=== PATIENT | male | born 1955 | race Caucasian/White ===

== ENCOUNTER → 2017-12-11 | Outpatient (CLI) | payer BC ==
[~2017-12-11] MED LIST: CLON1 PO; CYCL10 PO; Hydrocodone-Ap1 EA20 PO; LATA.005SO OD; LATANOPROST2.5 ML OP; SERT100 PO; ZOLP10 PO
[2017-12-11 14:48] LABS: Hematocrit 44.4 % (37.0-53.0); Hemoglobin 14.6 g/dL (13.5-17.5); Mean Corpuscular HGB 30.2 pg (26.0-34.0); Mean Corpuscular HGB Conc 32.9 g/dL (31.5-36.5); Mean Corpuscular Volume 92 fL (80-100); Mean Platelet Volume 10.7 fL (9.1-12.4); Platelet Count 280 K/mm3 (150-400); RDW Coefficient Variation 13.3 % (11.7-14.2); RDW Standard Deviation 45.4 fL (35.1-46.3); Red Blood Cell Count 4.83 M/mm3 (4.30-5.90); White Blood Cell Count 9.68 K/mm3 (4.00-11.30)
[2017-12-11 15:02] LABS: Percent Saturation 17.4 % (20.0-50.0)
== END ==
LOC: LAB SHORT 13:45 → LAB 13:45
PROVIDERS: Emergency Medicine
DX: D64.9 Anemia, unspecified (principal)
CPT/HCPCS: 82728; 83540; 83550; 85027

== ENCOUNTER 2018-04-11 10:44 | Day surgery (SDC) | payer BC ==
[~2018-04-11] VITALS: Ht 172.7 cm; Wt 105.3 kg
[2018-04-11] MEDS ORDERED: ONDA8 (11:07)
[2018-04-11] MEDS ORDERED: MULTI VITAMIN1 EACH (11:08)
[2018-04-11] MEDS ORDERED: Xalatan2.5 ML (11:08)
[2018-04-11] MEDS ORDERED: ESCI5 (11:08)
--- NOTE | 2018-04-11 11:24 | NUR ---
04/11/18 1124 Jessica Cisneros PREOP TEACHING DONE, PT HAS NO QUESTIONS. DR JARQUIN GIVES PERMISSION FOR THE PATIENT TO BE ESCORTED TO THE ED (HE IS A PHYSICIAN IN THE ED) WHERE HE WILL HAVE A CO-WORKER DRIVE HIM HOME AFTER THEIR WORK SHIFT.
== END 2018-04-11 13:30 | disposition home or self-care (01) ==
LOC: ORSCSDS 10:44
PROVIDERS: Internal Medicine Gastroenterology
PROC: 0DBL8ZX Excision of Transverse Colon, Via Natural or Artificial Opening Endoscopic, Diagnostic (ICD-10-PCS; principal; 2018-04-11 12:00)
DX: Z12.11 Encounter for screening for malignant neoplasm of colon (principal); Z83.71 Family history of colonic polyps; D12.3 Benign neoplasm of transverse colon; K64.8 Other hemorrhoids; Z79.899 Other long term (current) drug therapy
CPT/HCPCS: 88305; J1980; J7120

== ENCOUNTER → 2018-08-12 | Outpatient (CLI) | payer BC ==
[~2018-08-12] MED LIST changes: +ESCI5; +MULTI VITAMIN1 EACH; +ONDA8; +Xalatan2.5 ML
== END | disposition home or self-care (01) ==
LOC: PLD 10:41 → LAB SHORT 10:41
DX: L57.0 Actinic keratosis (principal)
CPT/HCPCS: 88305

== ENCOUNTER 2020-03-30 12:02 | Inpatient (IN) | payer BC, MEDICARE ==
[~2020-03-30] VITALS: Ht 172.7 cm; Wt 103.3 kg
[~2020-03-30 12:02] MED LIST changes: +COMBIVENT RESPIM4 G1; +ESCI10 PO; -Xalatan2.5 ML
[2020-03-30 13:06] LABS: BASOPHILS ABSOLUTE AUTO 0.04 K/mm3 (0.00-0.23); BASOPHILS PERCENT AUTO 1 % (0-2); EOSINOPHILS PERCENT AUTO 0 % (0-6); Hematocrit 36.8 % (37.0-53.0); Hemoglobin 11.8 g/dL (13.5-17.5); IMMATURE GRAN ABSOLUTE AUTO 0.04 K/mm3 (0.00-0.10); IMMATURE GRAN PERCENT AUTO 1 % (0-1); LYMPHOCYTES ABSOLUTE AUTO 1.38 K/mm3 (0.84-5.20); LYMPHOCYTES PERCENT AUTO 19 % (21-46); MONOCYTES ABSOLUTE AUTO 1.06 K/mm3 (0.16-1.47); MONOCYTES PERCENT AUTO 15 % (4-13); Mean Corpuscular HGB 25.5 pg (26.0-34.0); Mean Corpuscular HGB Conc 32.1 g/dL (31.5-36.5); Mean Corpuscular Volume 80 fL (80-100); Mean Platelet Volume 9.6 fL (9.1-12.4); NEUTROPHILS ABSOLUTE AUTO 4.77 K/mm3 (1.96-9.15); NEUTROPHILS PERCENT AUTO 66 % (41-73); Platelet Count 121 K/mm3 (150-400); RDW Coefficient Variation 20.8 % (11.7-14.2); RDW Standard Deviation 59.3 fL (35.1-46.3); Red Blood Cell Count 4.62 M/mm3 (4.30-5.90); White Blood Cell Count 7.29 K/mm3 (4.00-11.30)
[2020-03-30 13:18] LABS: Alanine Aminotransfer (ALT/SGP 105 U/L (12-78); Albumin, Blood 3.7 g/dL (3.4-5.0); Albumin/Globulin Ratio 1.1 (0.8-1.8); Alk Phos 152 U/L (50-136); Anion Gap 15 mmol/L (6-16); Aspartate Aminotrans (AST/SGOT 153 U/L (12-37); Blood Urea Nitrogen 8 mg/dL (8-24); CO2, Blood 23 mmol/L (21-32); Calcium, Blood 8.8 mg/dL (8.5-10.1); Chloride, Blood 90 mmol/L (98-108); Ethanol (Alcohol), Blood, Med 300 mg/dL; Globulin, Blood 3.3 g/dL (2.2-4.0); Glomerular Filtration Rate >60 (60-); Glucose, Blood 116 mg/dL (70-99); Potassium, Blood 4.2 mmol/L (3.5-5.5); Sodium, Blood 128 mmol/L (136-145)
[2020-03-30 13:19] LABS: International Normalized Ratio 0.94; Prothrombin Time Results 10.1 Sec (9.7-11.5)
[2020-03-30] MEDS ORDERED: CHLO25 PO (14:54)
[2020-03-30] MEDS ORDERED: Xalatan2.5 ML BOTHEYES (17:56)
[2020-03-30] MEDS ORDERED: TIMOLOL MALEATE5 ML BOTHEYES (17:58)
[2020-03-30] MEDS ORDERED: Desyrel150 MG PO (17:59)
[2020-03-30 19:50] LABS: Influenza A, PCR Negative (NEGATIVE); Influenza B, PCR Negative (NEGATIVE); Resp Syncytial Virus, PCR Negative (NEGATIVE); SARS-Cov-2 (COVID-19) PCR, MMC Negative (NEGATIVE)
[2020-03-30] MEDS ORDERED: PANT40 PO (20:44)
[2020-03-30] MEDS ORDERED: MULTI-VITAMIN1 EAC2 PO (20:46)
[2020-03-30] MEDS ORDERED: ESZO3 PO (20:48)
--- NOTE | 2020-03-30 22:00 | NUR ---
PT ARRIVES TO ICU 8 FROM ED VIA STRETCHER. TO ROOM AT 2030. PT ALERT AND MOSTLY ORIENTED. NOTEABLE TREMORS. PT OPEN AND HONEST ABOUT HIS ETOH ABUSE, AND HIS SUICIDAL IDEATION. PT GOOD HISTORIAN. PT'S DAUGHTER, VANNESSA HAS GONE HOME FOR THE NIGHT. ASSISTED WITH SOME HISTORY FOR PT. ALSO SIGNED PT'S CONSENTS WITH PT'S PERMISSION.
--- NOTE | 2020-03-31 02:04 | NUR ---
DR ARAUJO HAS COME IN TO SEE PT EARLIER. ORDERS RECEIVED. PT DOES REQUEST ATIVAN OFTEN, AND LIBRIUM. PT STATES HE IS TRYING TO GET TO SLEEP, AND "TO GET RID OF MY ANXIETY." PT HAS NEEDED TO BE REARRANGED IN THE BED SECONDARY TO HIM BEING RESTLESS. WILL CONTINUE TO MONITOR PT.
[2020-03-31 03:42] LABS: BASOPHILS ABSOLUTE AUTO 0.04 K/mm3 (0.00-0.23); BASOPHILS PERCENT AUTO 1 % (0-2); EOSINOPHILS ABSOLUTE AUTO 0.01 K/mm3 (0.00-0.68); EOSINOPHILS PERCENT AUTO 0 % (0-6); Hematocrit 32.1 % (37.0-53.0); Hemoglobin 10.3 g/dL (13.5-17.5); IMMATURE GRAN PERCENT AUTO 2 % (0-1); LYMPHOCYTES ABSOLUTE AUTO 1.01 K/mm3 (0.84-5.20); LYMPHOCYTES PERCENT AUTO 15 % (21-46); MONOCYTES ABSOLUTE AUTO 0.96 K/mm3 (0.16-1.47); MONOCYTES PERCENT AUTO 14 % (4-13); Mean Corpuscular HGB 26.2 pg (26.0-34.0); Mean Corpuscular HGB Conc 32.1 g/dL (31.5-36.5); Mean Corpuscular Volume 82 fL (80-100); Mean Platelet Volume 9.7 fL (9.1-12.4); NEUTROPHILS ABSOLUTE AUTO 4.57 K/mm3 (1.96-9.15); NEUTROPHILS PERCENT AUTO 68 % (41-73); Platelet Count 95 K/mm3 (150-400); RDW Coefficient Variation 20.9 % (11.7-14.2); RDW Standard Deviation 61.9 fL (35.1-46.3); Red Blood Cell Count 3.93 M/mm3 (4.30-5.90); White Blood Cell Count 6.69 K/mm3 (4.00-11.30)
[2020-03-31 03:59] LABS: Alanine Aminotransfer (ALT/SGP 88 U/L (12-78); Albumin, Blood 3.2 g/dL (3.4-5.0); Albumin/Globulin Ratio 1.2 (0.8-1.8); Alk Phos 138 U/L (50-136); Anion Gap 8 mmol/L (6-16); Aspartate Aminotrans (AST/SGOT 132 U/L (12-37); Bilirubin, Total 1.3 mg/dL (0.1-1.0); Blood Urea Nitrogen 16 mg/dL (8-24); CO2, Blood 30 mmol/L (21-32); Calcium, Blood 8.5 mg/dL (8.5-10.1); Chloride, Blood 93 mmol/L (98-108); Creatinine, Blood 0.94 mg/dL (0.60-1.20); Globulin, Blood 2.7 g/dL (2.2-4.0); Glomerular Filtration Rate >60 (60-); Glucose, Blood 115 mg/dL (70-99); Sodium, Blood 131 mmol/L (136-145); Total Protein, Blood 5.9 g/dL (6.4-8.2)
--- NOTE | 2020-03-31 04:30 | NUR ---
PT HAS BEEN HAVING SOME INCREASE IN CONFUSION. TREMORS CONTINUE. NO HALLUCINATIONS TO NOTE. ATIVAN AND LIBRIUM NEEDED. PT HAS SOME ISSUES WITH URINAL AND NEEDS TO BE CLEANED AND HAVE BED CHANGE.
--- NOTE | 2020-03-31 07:07 | NUR ---
PT BECOMING DIAPHORETIC, AND INCREASINGLY CONFUSED THIS MORNING. HAVE MEDICATED PT RECENTLY WITH 50 MG LIBRIUM WITH 2 MG LORAZEPAM. THIS IS HELPFUL WITH PT. HE DOES ASK HOW LONG A PERSON USUALLY TAKES TO GO THROUGH WITHDRAWALS. TEACHING DONE. 1:1 SITTER REMAINS AT PT'S DOOR FOR PATIENT'S SAFETY. REPORT GIVEN TO PAO PINEDA.
--- NOTE | 2020-03-31 08:00 | NUR ---
ASSUMED CARE: REPORT RECEIVED FROM TAMI Alcantar RN. ASSUMED CARE OF THIS PT AT APPROX 0700. ON ASSESSMENT, THE PT IS RESTING SOUNDLY. HE AWAKENS EASILY TO VERBAL STIMULUS & IS ALERT/ ORIENTED TO LOCATION, EVENT, PERSON & FAMILY. HE IS SLIGHTLY DISORIENTED TO DATE, BELIEVING THAT IT IS March. CIWA 15. LS ARE CLEAR T/O, PT ON 2L NC FOR DESATS TO 87% WHILE SLEEPING SOUNDLY. MONITOR SHOWS SR-ST W/ HR 90-110s, BP STABLE. PT HAS MILD C/O NAUSEA, MEDS PER EMAR. PT IS VOIDING W/O DIFFICULTY, USING URINAL ABLE BUT ALSO HAVING SOME URGENCY INCONTINENCE. SKIN CONDITION OVERALL INTACT, LARGE AREAS OF BRUISING NOTED TO R FLANK/BACK, BILAT KNEES & L THIGH, PT STS FROM RECURRING FALLS AT HOME. WILL CONTINUE TO MONITOR & UPDATE NEEDED.
--- NOTE | 2020-03-31 09:00 | NUR ---
STORY TELLER CONSULT: GIOVANNI England, FIXTURE DESIGNER, HAS BEEN AT BEDSIDE W/ THIS RN THIS AM. THE PT IS CURRENTLY EXPERIENCING A DIVORCE THAT HAS NOT BEEN COMPLETED, BUT CLEARLY STS THAT HIS , GENTRY, SHOULD NOT BE ALLOWED TO HAVE ANY INFORMATION REGARDING HIM OR HIS CARE. INSTEAD HE WOULD LIKE HIS DAUGHTER, JACQUELINE Uriostegui, TO BE THE ONLY PERSON INVOLVED W/ HIS CARE & DECISION MAKING. HE IS CLEAR IN THESE STATEMENTS & HAS BEEN ABLE TO ANSWER ALL QUESTIONS ASKED OF HIM W/O HESITATION. HE DENIES ANY SI AT THIS TIME. HIGH RISK 1:1 SITTER REMAINS AT BEDSIDE UNTIL DR RUBIN HAS EVALUATED THE PT.
--- NOTE | 2020-03-31 12:30 | NUR ---
DR RUBIN: PROVIDER HAS SEEN & EVALUATED THE PT. SI PRECAUTIONS HAVE BEEN CHANGED TO LOW RISK & ORDERS HAVE BEEN PLACED. CENTRAL MONITORING HAS BEEN NOTIFIED THAT PT IS NO LONGER NEEDING TO BE MONITORED ON THE CAMERAS. 1:1 SITTER HAS BEEN DISMISSED. SABRINA Valadez, HEALTH CARE SPECIALIST & ANDRE Montelongo, NURSING SUP, HAVE ALSO BEEN NOTIFIED OF THIS.
--- NOTE | 2020-03-31 13:34 | NUR ---
DR. LEWIS/GI PT NOTED TO HAVE LOOSE STOOL BLACK/DARK RED IN APPEARANCE. PT DENIES ABDOMINAL PAIN OR NAUSEA, STATES "JUST THAT INDIGESTION", REQUESTING IMMODIUM. CALL TO DR. LEWIS. ORDERS RECEIVED FOR HEMOCCULT STOOLS, [facility], [facility]
--- NOTE | 2020-03-31 13:36 | NUR ---
Suicide safety plan inteview attmpted. Pat was not talkative and shook his head n when quesstioned egarding suiciddal intent or ideation. He did affim that he wants to go to [facility] for treatment. ICU Nurse informed this manual writer that health care aide is working on this dischage plan. He was informed of crisis phone number. Psychiatist has dismissed 1:1 observatio.
--- NOTE | 2020-03-31 14:07 | NUR ---
[facility] UPDATE: JACQUELINE Gila, PT's DAUGHTER, HAS NOTIFIED THIS RN THAT TIFFANI WILL BE CALLING FROM [facility] TOMORROW. JACQUELINE HAS REQUESTED THAT TIFFANI BE PLACED ON RELEASE OF INFORMATION SHEET SO THAT SHE MAY SPEAK TO THE PT, WHO IS CONFIDENTIAL, TOMORROW AT APPROX 1330. THIS HAS ALSO BEEN NOTED BRIEFLY ON THE INFO RELEASE PAPERWORK.
[2020-03-31 14:23] LABS: Hematocrit 29.7 % (37.0-53.0); Hemoglobin 9.3 g/dL (13.5-17.5)
--- NOTE | 2020-03-31 16:30 | NUR ---
ASSUMED CARE: PT ASSISTED TO TOILET AND PT WAS UNSTEADY ON FEET. PT WENT TO GET BACK IN BED AND WENT FACE FIRST ONTO BED. DISORIENTED WITH DIRECTIONS BUT ORIENTED ENOUGH TO ASK FOR ATIVAN. 2MG GIVEN. LATEST CIWA SCORE OF 14
--- NOTE | 2020-03-31 18:11 | NUR ---
SHIFT SUMMARY: PT SETS OFF BED ALARM AT TIMES WHEN HE NEEDS TO USE RESTROOM. AWAITING STOOL SAMPLE AT THIS TIME. BANANA BAG RUNNING. STORE DIRECTOR AWARE THAT ONLY [address] AND IF PT NEEDS PRECEDEX HE WILL NEED A SECOND SITE. PT'S DAUGHTER HAS BEEN UPDATED TO PT'S STATUS TODAY. IN [place]ING WORKING ON ARRANGING FOR PT TO GO [facility] IN
[2020-03-31 18:15] LABS: U Amphetamine Screen Not Detected; U Barbituate Screen Not Detected; U Benzodiazapine Screen DETECTED; U Buprenorphine Screen Not Detected; U Cannabinoids Screen Not Detected; U Cocaine Screen Not Detected; U Methadone Screen Not Detected; U Methamphetamine Screen Not Detected; U Opiates Screen Not Detected; U Oxycodone Screen Not Detected; U Phencyclidine Screen Not Detected; U Propoxyphene Screen Not Detected
--- NOTE | 2020-03-31 20:00 | NUR ---
ASSUMED CARE OF PT AT 1915. REPORT RECEIVED AT BEDSIDE. PT PRESENTS IN BED. ALERT AND MOSTLY ORIENTED. PT NOTED TO BE SOMEWHAT IMPULSIVE WHEN HE NEEDS TO VOID. NEEDS TO BE REDIRECTED. WILL REVIEW CHART AND PLAN OF CARE FOR THIS PT.
[2020-03-31 20:46] LABS: Hematocrit 28.2 % (37.0-53.0); Hemoglobin 8.8 g/dL (13.5-17.5)
--- NOTE | 2020-03-31 23:19 | NUR ---
HAVE MEDICATED PT TWICE THIS SHIFT WITH ATIVAN FOR INCREASING TREMORS. PT HAS BEEN INCONTINENT TWICE TO URINE. IS IMPULSIVE. BED ALARM ON BED FOR HIS SAFETY. 18 GAUGE 10 CM POWERGLIDE PLACED IN LEFT UPPER ARM. PT TOLERATES THIS WELL. LABS DRAWN AT TIME OF PLACEMENT. WILL CONTINUE TO MONITOR PT. SEE CIWA SCORING FOR DETAILS.
[2020-04-01 02:20] LABS: Hematocrit 28.2 % (37.0-53.0); Hemoglobin 8.7 g/dL (13.5-17.5)
--- NOTE | 2020-04-01 03:42 | NUR ---
PT HAS, AT TIMES, REMOVED HIS BLOOD PRESSURE CUFF, AND PULLED APART HIS OXIMETER PROBE. HAVE PLACED CONDOM CATHETER ON PATIENT SECONDARY TO FREQUENT URINARY INCONTINENCY. PT HAS DEMONSTRATED A VERY GOOD APPETITE THIS NIGHT WITH FREQUENT REQUESTS FOR FOOD. NO COMPLAINTS OF NAUSEA. NO COMPLAINTS OF PAIN. PT DOES AT TIMES REQUEST ATIVAN. THIS HAS BEEN DONE. WILL CONTINUE TO MONITOR PT.
--- NOTE | 2020-04-01 06:26 | NUR ---
PT HAS NOT VOIDED SINCE CONDOM CATHETER WAS PLACED. ATTENDS IN PLACE. PT HAS BEEN ABLE TO MOVE ABOUT BED ON HIS ONW. IS FORGETFUL. HAS REMAINED PLEASANT AND COOPERATIVE WITH CARE AND ASSESSMENT. DOES COMPLAIN OF BEING UNCOMFORTABLE IN BED. DID ADJUST THE FIRMNESS OF MATTRESS. PT HAS NOT HAD ANY FURTHER COMPLAINTS. PT HAS BEEN MEDICATED WITH ATIVAN AND LIBRIUM FOR ETOH WITHDRAWALS. WILL CONTINUE TO MONITOR PT, AND WILL REPORT OFF TO ONCOMING RN.
--- NOTE | 2020-04-01 07:06 | NUR ---
ASSUMED CARE: PT RESTING QUIETLY AT THIS TIME. BED ALARM ON. NSR IN THE 90S AT THIS TIME. SL. PRECEDEX AVAILABLE IF NEEDED. PT APPEARS CALM AT THIS TIME. NO ACUTE NEEDS
[2020-04-01 08:20] LABS: BASOPHILS ABSOLUTE AUTO 0.04 K/mm3 (0.00-0.23); BASOPHILS PERCENT AUTO 1 % (0-2); EOSINOPHILS ABSOLUTE AUTO 0.06 K/mm3 (0.00-0.68); EOSINOPHILS PERCENT AUTO 1 % (0-6); Hematocrit 28.6 % (37.0-53.0); Hemoglobin 8.9 g/dL (13.5-17.5); IMMATURE GRAN ABSOLUTE AUTO 0.08 K/mm3 (0.00-0.10); IMMATURE GRAN PERCENT AUTO 2 % (0-1); LYMPHOCYTES ABSOLUTE AUTO 1.03 K/mm3 (0.84-5.20); LYMPHOCYTES PERCENT AUTO 20 % (21-46); MONOCYTES PERCENT AUTO 14 % (4-13); Mean Corpuscular HGB 26.4 pg (26.0-34.0); Mean Corpuscular HGB Conc 31.1 g/dL (31.5-36.5); Mean Corpuscular Volume 85 fL (80-100); Mean Platelet Volume 11.7 fL (9.1-12.4); NEUTROPHILS ABSOLUTE AUTO 3.29 K/mm3 (1.96-9.15); NEUTROPHILS PERCENT AUTO 63 % (41-73); NRBC ABSOLUTE 0.03 K/mm3 (0.00-0.02); NRBC Auto 0.6 /100 WBC (0.0-0.2); Platelet Count 86 K/mm3 (150-400); RDW Coefficient Variation 21.1 % (11.7-14.2); RDW Standard Deviation 64.9 fL (35.1-46.3); Red Blood Cell Count 3.37 M/mm3 (4.30-5.90)
[2020-04-01 08:29] LABS: Alanine Aminotransfer (ALT/SGP 87 U/L (12-78); Albumin, Blood 2.7 g/dL (3.4-5.0); Albumin/Globulin Ratio 1.1 (0.8-1.8); Alk Phos 113 U/L (50-136); Anion Gap 5 mmol/L (6-16); Aspartate Aminotrans (AST/SGOT 142 U/L (12-37); Bilirubin, Total 0.6 mg/dL (0.1-1.0); Blood Urea Nitrogen 21 mg/dL (8-24); Bun/Creatinine Ratio 20.8 (12.0-20.0); CO2, Blood 32 mmol/L (21-32); Calcium, Blood 8.5 mg/dL (8.5-10.1); Chloride, Blood 101 mmol/L (98-108); Creatinine, Blood 1.01 mg/dL (0.60-1.20); Globulin, Blood 2.4 g/dL (2.2-4.0); Glomerular Filtration Rate >60 (60-); Glucose, Blood 104 mg/dL (70-99); Potassium, Blood 3.4 mmol/L (3.5-5.5); Sodium, Blood 138 mmol/L (136-145); Total Protein, Blood 5.1 g/dL (6.4-8.2)
--- NOTE | 2020-04-01 10:47 | NUR ---
DR LEWIS AND DR ASCENCIO WERE INQUIRING IF PT COULD BE TRANSFERRED TO [facility] TODAY. MADE THEM AWARE THAT CIWAS HAVE BEEN 9-[address] INSTRUCTED TO TRY TO USE LIBRIUM MORE THAN ATIVAN. WITNESSED PT REQUIRING 2 PERSON ASSIST TO CHAIR AND DETERMINED THAT IT WAS TOO SOON FOR PT TO BE TRANSFERRED FROM HOSPITAL. CALL TO SABRINA IN [place] WHO CONFIRMED THAT [facility] IS FOR WHEN A PERSON IS MEDICALLY STABLE AND THEY DO NOT DEAL WITH ACTIVE WITHDRAWALS, FAR SHE IS AWARE. SENIOR PRICING ANALYST AWARE
--- NOTE | 2020-04-01 11:44 | NUR ---
PT WAS GIVEN 50MG OF LIBRIUM AND CONTINUED TO TRY TO CLIMB OUT OF CHAIR. ASKED WHY CHAIR WAS LOCKED AND WHEN THIS RN EXPLAINED THAT IT WAS SO THAT HE DOES NOT TRY TO GET OUT ON HIS OWN HE GLARED AT NURSE. MEDICATED WITH 2MG ATIVAN. SEE CIWA SCORE. PT WANTED TO EAT LUNCH BUT FALLS ASLEEP WITH LID OF TRAY IN LAP. IN RECLINER, TAB ALARM ON.
--- NOTE | 2020-04-01 14:36 | NUR ---
PT BEGAN TO GET MORE AGITATED AND PULLED OUT HIS IV. INCLUSION TEACHER ADMINISTERED 2MG ATIVAN AND A SECOND IV WAS STARTED. PT IN BED, RESTLESS, WIGGLING IN BED, PULLING AT RESTRAINTS. WILL START PRECEDEX GTT WHEN AVAILABLE.
--- NOTE | 2020-04-01 18:15 | NUR ---
PT'S BP'S HAVE BEEN SOFT WITH SYSTOLICS IN THE 80S. LAY UPS ASSEMBLER ENTERED ROOM AND FOUND PT WITH DRENCHING SWEATS. CALL TO DR LEWIS FOR FLUIDS. NS @ 100/HR RUNNING AT THIS TIME.
--- NOTE | 2020-04-01 18:40 | NUR ---
SHIFT SUMMARY: PT HAD CIWAS BETWEEN 9 AND 19 THIS SHIFT. PRECEDEX GTT IN PLACE AT 0.5MCG/KG. NS AT 100/HR FOR HYPOTENSION. PT WAS NOT AWAKE ENOUGH TO EAT DINNER. MEDICATED X1 WITH LIBRIUM AND X3 WITH ATIVAN THIS SHIFT. BILATERAL WRIST RESTRAINTS FOR PULLING IV LINE OUT AND ATTEMPTING TO PULL TELE PATCHES OFF. RESTING QUIETLY AT THIS TIME
--- NOTE | 2020-04-01 19:00 | NUR ---
ASSUMED CARE NOTE: ASSUMED CARE OF PT AT 1900, RECEVIED REPORT FROM RADHIKA CEDENO. PT RESPONDS TO VERBAL AND PAINFUL STIMULI. WILL MOVE SELF AROUND IN BED. PT IS ON RA WITH SPO2 AT 98% LUNG SOUNDS CLEAR T/O. PT IN NSR WITH HR IN THE 60'S. LAST CIWA 10, PRECEDEX CURRENTLY RUNNING AT 0.5MCG/KG/HR. PT HAS A CONDOM CATH IN PLACE, YELLOW CLEAR URINE NOTED. PT REPOSTIONED IN BED, ATTENDS CHANGES. NO PO MEDS GIVEN, DUE TO ASPIRATION RISK.
[2020-04-02 03:47] LABS: BASOPHILS ABSOLUTE AUTO 0.05 K/mm3 (0.00-0.23); BASOPHILS PERCENT AUTO 1 % (0-2); EOSINOPHILS PERCENT AUTO 3 % (0-6); Hematocrit 28.6 % (37.0-53.0); Hemoglobin 8.7 g/dL (13.5-17.5); IMMATURE GRAN ABSOLUTE AUTO 0.09 K/mm3 (0.00-0.10); IMMATURE GRAN PERCENT AUTO 2 % (0-1); LYMPHOCYTES ABSOLUTE AUTO 0.79 K/mm3 (0.84-5.20); LYMPHOCYTES PERCENT AUTO 20 % (21-46); MONOCYTES ABSOLUTE AUTO 0.55 K/mm3 (0.16-1.47); MONOCYTES PERCENT AUTO 14 % (4-13); Mean Corpuscular HGB 26.4 pg (26.0-34.0); Mean Corpuscular HGB Conc 30.4 g/dL (31.5-36.5); Mean Corpuscular Volume 87 fL (80-100); Mean Platelet Volume 10.7 fL (9.1-12.4); NEUTROPHILS ABSOLUTE AUTO 2.29 K/mm3 (1.96-9.15); NEUTROPHILS PERCENT AUTO 59 % (41-73); Platelet Count 89 K/mm3 (150-400); RDW Coefficient Variation 21.2 % (11.7-14.2); RDW Standard Deviation 66.4 fL (35.1-46.3); Red Blood Cell Count 3.29 M/mm3 (4.30-5.90); White Blood Cell Count 3.87 K/mm3 (4.00-11.30)
[2020-04-02 04:02] LABS: Anion Gap 5 mmol/L (6-16); Blood Urea Nitrogen 18 mg/dL (8-24); CO2, Blood 30 mmol/L (21-32); Calcium, Blood 8.3 mg/dL (8.5-10.1); Chloride, Blood 106 mmol/L (98-108); Creatinine, Blood 0.86 mg/dL (0.60-1.20); Glomerular Filtration Rate >60 (60-); Glucose, Blood 108 mg/dL (70-99); Potassium, Blood 3.3 mmol/L (3.5-5.5); Sodium, Blood 141 mmol/L (136-145)
--- NOTE | 2020-04-02 04:50 | NUR ---
UPDATE: PT HAS BEEN OFF OF PRECEDEX SINCE 299. PT RESPONDS TO VERBAL AND PAINFUL STIMULI. UNABLE TO STAY AWAKE OR ANSWER QUESTIONS APPROPRIATLY AT THIS TIME. WILL CONTINUE TO MONITOR PT.
--- NOTE | 2020-04-02 06:29 | NUR ---
SHIFT SUMMARY: PT RESPONDS TO VERBAL/PAINFUL STIMULI. ABLE TO FOLLOW SOME DIRECTIONS. HAS ATTEMPTED TO MOVE SELF IN BED, HOWEVER IS TOO WEAK TO REPOSITION SELF. PRECEDEX HAS BEEN OFF SINCE 299. NO ATIVAN GIVEN DUE TO PATIENT DECREASED LOC. UNABLE TO GIVE ORAL MEDS, DUE TO ASPIRATION RISK. PT IS UNABLE TO STAY ALERT TO SWALLOW SAFELY. PT HAS BEEN IN SINUS RHYTHM IN THE 60-70'S .CONDOM CATH DRAINING TO GRAVITY, TAMI COLORED URINE NOTED. BILAT SWR IN PLACE, BED AT LOWEST LEVEL. WILL CONTINUE TO MONITOR PT UNTIL REPORT IS GIVEN TO ONCOMING SHIFT.
--- NOTE | 2020-04-02 10:58 | NUR ---
ASSUMED CARE AT 0700 PT LAYING IN BED ASLEEP AND DIFFICULT TO AROUSE BUT PT IS NODING TO YES/NO QUESTIONS. PT DID NOT KNOW WHERE HE WAS OR DATE/TIME. PT ON 3L NC WITH O2 SAT >95%. HR 70'S. BP STABLE. AFIBRILE. CONDOM CATH INPLACE AND DRAINING TO GRAVITY. PRECEDEX ON SB. CIWA 8. SEE SHIFT ASSESSMENT FOR FULL ASSESSMENT.
--- NOTE | 2020-04-02 11:06 | NUR ---
DR LERNER IN TO ASSESS DR LERNER PROVIDED NEW ORDERS INCLUDING KCL. PT IS ALERT AND ORIENTED NOW AND UNDERSTANDS WHY HE IS IN THE HOSPITAL. RESTRAINTS REMOVED; PT NOT PULLING AT LINES OR CORDS. NC REMOVED AND O2 SAT >95% ON RA. PT DRANK 800ML OF FLUIDS WITHOUT ISSUE. CIWA NOW 4.
--- NOTE | 2020-04-02 18:03 | NUR ---
END OF SHIFT SUMMARY PT IS ALERT AND ORIENTED X4 AND IS ABLE TO MAKE NEEDS KNOWN. CIWA'S RANGING FROM 4-8. LIBRIUM GIVEN TWICE. ATIVAN GIVEN THREE TIMES. PRECEDEX ON SB. AFIBRILE. O2 SAT ON RA >95%. HR 70-80'S SBP 90-120'S. PT UP TO THE BED SIDE COMMODE X3 WITH LG BROWN SOFT STOOL. PT ABLE TO SAFELY EAT LUNCH AND DINNER AND MEDICATED WITH ZOFRAN TWICE. CONDOM CATH PATENT AND DRAINING TO GRAVITY. WILL REPORT TO PM RN WHEN AVAILABLE.
--- NOTE | 2020-04-02 19:00 | NUR ---
ASSUMED CARE NOTE: ASSUMED CARE OF PT AT 1900, RECEVIED REPORT FROM JOSE LUIS CEDENO. PT IS ALERT AND ORIENTEDX3. ABLE TO FOLLOW DIRECTIONS, ABLE TO COMMUNICATE NEEDS. PT IS SINUS RYTHYM WITH HR IN THE 90'S. CIWA OF 8. SLIGHT TREMOR CAN BE FELT. SKIN COLD AND CLAMMY. PT DENIES ANY VISUAL AND AUDITORY HALLUCINATION. PT REPORTS MILD HEADACHE, WHICH IS GETTING WORSE. PT RECEVIED A DOSE OF ATIVAN DURING SHIFT CHANGE. CONDOM CATH IN PLACE, PT ABLE TO ASSIST WITH REPOSITION.
--- NOTE | 2020-04-03 01:54 | NUR ---
UPDATE: PT ATTEMPTING TO GET OUT OF BED, STS " I AM SICK OF BEING IN THE BED" PT PLACED IN RECLINER. CHAIR ALARM IN PLACE, DUE TO PT BEING IMPULSIVE. CIWA 8, PT STS HE IS VERY ANXIOUS. ATIVAN GIVEN PER EMAR. PT SITTING UP, EATING A SNACK.
[2020-04-03 03:04] LABS: Hematocrit 30.4 % (37.0-53.0); Mean Corpuscular HGB 27.2 pg (26.0-34.0); Mean Corpuscular HGB Conc 29.6 g/dL (31.5-36.5); Mean Platelet Volume 10.2 fL (9.1-12.4); Platelet Count 126 K/mm3 (150-400); RDW Coefficient Variation 21.8 % (11.7-14.2); RDW Standard Deviation 72.2 fL (35.1-46.3); Red Blood Cell Count 3.31 M/mm3 (4.30-5.90); White Blood Cell Count 6.15 K/mm3 (4.00-11.30)
[2020-04-03 03:09] LABS: Mean Corpuscular Volume 92 fL (80-100)
[2020-04-03 03:23] LABS: Anion Gap 5 mmol/L (6-16); Blood Urea Nitrogen 15 mg/dL (8-24); Bun/Creatinine Ratio 14.7 (12.0-20.0); CO2, Blood 26 mmol/L (21-32); Calcium, Blood 8.3 mg/dL (8.5-10.1); Chloride, Blood 112 mmol/L (98-108); Creatinine, Blood 1.02 mg/dL (0.60-1.20); Glomerular Filtration Rate >60 (60-); Glucose, Blood 127 mg/dL (70-99); Potassium, Blood 3.6 mmol/L (3.5-5.5); Sodium, Blood 143 mmol/L (136-145)
[2020-04-03 03:28] LABS: BAND PERCENT MAN 10 % (0-8); BASOPHILS PERCENT MAN 0 % (0-2); EOSINOPHILS ABSOLUTE MAN 0.06 K/mm3 (0.00-0.68); EOSINOPHILS PERCENT MAN 1 % (0-6); LYMPHOCYTES ABSOLUTE MAN 0.79 K/mm3 (0.84-5.20); LYMPHOCYTES PERCENT MAN 13 % (21-46); MONOCYTES ABSOLUTE MAN 0.36 K/mm3 (0.16-1.47); MONOCYTES PERCENT MAN 6 % (4-13); MYELOCYTE ABSOLUTE MAN 0.12 K/mm3 (0.00-0.00); MYELOCYTE PERCENT MAN 2 % (0-0); NEUTROPHILS ABSOLUTE MAN 4.79 K/mm3 (1.96-9.15); SEG NEUTROPHILS PERCENT MAN 68 % (41-73); TOTAL CELLS COUNTED 100
--- NOTE | 2020-04-03 06:10 | NUR ---
SHIFT SUMMARY: CIWA SCORES HAVE BEEN 8 OR LESS THIS SHIFT, MEDICATED WITH ATIVAN AND LIBRIUM PER EMAR. PT HAS BEEN ALERT AND ORIENTED TO SELF, FAMILY AND FOLLOWING DIRECTIONS. PT IS IMPULSIVE AND WILL ATTEMPT TO GET OUT OF BED BY HIMSELF. BED AND CHAIR ALARMS HAVE BEEN USED T/O SHIFT. PT REQUIRES 1-2 PERSON ASSIT WITH AMBULATION. PT HAS A WEAK AND UNSTEADY GAIT. STS IT IS PAINFUL ALL OVER TO MOVE AROUND. HOWEVER THAT HE IS LESS EXHAUSTED THAN YESTERDAY. USES WALKER TO AMBULATE. PT HAD A LOOSE BOWEL MOVMENT THIS SHIFT, LIGHT BROWN IN COLOR. PT GIVEN AN IMODIUM THIS SHIFT PER PATIENT REQUEST. CONDOM CATH IN PLACE, REDNESS TO LAMINE AREA, PROTECTIVE CREAM USED TO PREVENT FURTHER BREAKDOWN. PT CURRENTLY IN CHAIR, CHAIR ALARM IN PLACE. CALL LIGHT WITHIN REACH. WILL CONTINUE TO MONITOR PT UNTIL REPORT IS GIVEN TO ONCOMING SHIFT.
--- NOTE | 2020-04-03 11:00 | NUR ---
PT IS A/O X4, BUT IS FORGETFUL. HE WILL MAKE REMARKS ABOUT MISSING BREAKFAST THIS AM BUT HE SAT UP IN THE CHAIR AND ATE ALL HIS BREAKFAST. PT IS IMPULSIVE. SOMETIMES HE USES CALL LIGHT APPROPRIATELY AND SOMETIMES HE JUST GETS UP ON HIS OWN. CHAIR ALARM ON WHILE IN RECLINER FOR SAFETY. UNSTEADY ON FEET. USES WALKER. SOMETIMES HE IS STRONGER AND ABLE TO TAKE QUITE A FEW STEPS AND OTHER TIMES HE CAN BARELY SUPPORT HIS OWN WEIGHT. CONDOM CATH REPLACED PER PT AND DRAING WELL WITHOUT ISSUE. NO SIGN OF DISTRESS.
--- NOTE | 2020-04-03 12:51 | NUR ---
ASSITED PT BACK TO BED FROM CHAIR. PT APPEARS WEAKER THAN HE WAS THIS AM. PT EVAL AND TREATMENT ORDERED. ONCE BACK IN BED, PT COMPLAINED OF ANXIETY-MED WITH BOTH LIBRIUM AND ATIVAN PO-SEE EMAR.
--- NOTE | 2020-04-03 18:15 | NUR ---
SUMMARY PT SLEEPING NOW. HAS BEEN RESTLESS TODAY BUT PLEASANT AND COOPERATIVE. PT WILL LET RN KNOW WHEN HE IS FEELING ANXIOUS AND NEEDS MEDICATION. CIWA 3-8 TODAY. REMAINS IMPULSIVE AND UNSTEADY ON HIS FEET. WAS UP AND DOWN FROM BED TO CHAIR FREQUENTLY TODAY WITH WALKER. PT IS ABLE TO STAND AND WALK WITH WALKER AT TIMES THEN SOMETIMES HE IS WEAK AND CAN BARELY HOLD HIS WEIGHT UP. HAS CONDOM CATH ON PER HIS REQUEST. NO SIGN OF DISTRESS AT THE MOMENT.
--- NOTE | 2020-04-03 20:25 | NUR ---
SHIFT ASSESSMENT ASSUMED CARE OF PT @ 1900, REPORT RECV'D FROM LIVIA CEDENO. PT IS ALERT AND ORIENTED, SITTING UP IN BED EATING DINNER. APPEARS TO HAVE A GOOD APPETITE, BUT QUITE SOMNOLENT. QUICKLY FALLS ASLEEP WITH DECREASED STIMUMLATION. AROUSES EASILY WITH VERBAL STIMULATION. CIWA SCORE <5, PT DENIES THE NEED FOR PRN ANXIETY MEDICATIONS. PT STATES HE FEELS OVERLY SEDATE, WILL WITHOLD EVENING MEDICATIONS PENDING CHANGES IN CIWA. SPOKE WITH PTS DAUGHTER, JACQUELINE WHO STATED HE WASN'T THIS SOMNOLENT LAST NIGHT. PT ON 4LPM O2 VIA NC WHILE SLEEPING c O2 SATS >90%. NSR ON THE HOSIERY MENDER. CONDOM CATHETER IN PLACE DRAINING YELLOW URINE. POWERGLIDE IN L UPPER ARM PATENT, FLUSHED WITH 20CC NS. PT ABLE TO ASSIST WITH TURNS, MOVED SELF TO L SIDE. VSS, WILL CONTINUE TO MONITOR.
--- NOTE | 2020-04-03 21:14 | NUR ---
UPDATE PT REMAINS SOMNOLENT c CIWA <4. EASILY AROUSES c VERBAL STIMULI BUT QUICKLY BACK TO SLEEP. DISCUSSED EVENING MEDICATIONS c PT AND DUE TO LOW CIWA, NO ATIVAN OR LIBRIUM GIVEN. WILL CONTINUE TO REASSESS CIWA.
--- NOTE | 2020-04-04 01:45 | NUR ---
URINARY NOTE PT REQUESTED CONDOM CATH, RN JV AGREED W/ REQUEST, CONDOM CATH PLACED
--- NOTE | 2020-04-04 05:38 | NUR ---
SHIFT SUMMARY PT REMAINED SOMNOLENT UNTIL INSTRUMENT AND CONTROL TECHNICIAN. AROUND 0300 PT REQUESTED TX TO BEDSIDE CHAIR. WAS ABLE TO TX TO CHAIR USING WALKER WITH STANDY ASSIST. PT REQUESTED FOOD AND DRINK. PROVIDED SMALL SNACK AND COFFEE. DURING REASSESSMENT PT FULLY ALERT, CALM, FRIENDLY, ABLE TO IDENTIFY THIS NURSE BY FIRST NAME WITHOUT READING BADGE. PT REMEMBERS BEING OVERLY SEDATED LAST NIGHT, CORRELATING SOMNOLENCE WITH ADMINISTRATION OF GABAPENTIN. GABAPENTIN WITHELD LAST NIGHT AND PT REQUESTS TO NOT RECEIVE IT TODAY. CIWA MAX OF 6 THIS AM @ 0500, TREATED WITH ATIVAN. VSS. PT RESTING COMFORTABLY IN BEDSIDE CHAIR. CHAIR ALARM IN PLACE, WILL CONTINUE TO MONITOR.
--- NOTE | 2020-04-04 13:10 | NUR ---
RECEIVED PATIENT THIS AM FROM JV. PT WAS SITTING IN CHAIR HAVING A BEVERAGE AND SNACK. ANSWERED QUESTIONS APPROPRIATELY ALBEIT SLOWLY. PT WAS WITHDRAWN AND A BIT ANXIOUS. AFTER BEING UP IN THE CHAIR FOR A BIT, HE ASKED FOR HIS BEDTIME MEDICATIONS. REORIENTED TO TIME AND SITUATION, THEN ASKED TO GO TO BED. HE TOOK A GOOD NAP AND AWOKE THEN IMMEDIATELY TRIED TO GET OUT OF BED. WHEN WE DISCUSSED THAT IT WAS NECESSARY TO PUT RAILS DOWN, HE WAS COOPERATIVE. HE THEN AMBULATED TO THE CHAIR, WITH GAIT BELT AND WALKER. HE HAS BEEN MORE ALERT AND LESS SLOW IN HIS COMMUNICATION. BETTER ORIENTATION SINCE THE NAP. PT ATE GOOD LUNCH, DENIES ANY FURTHER NAUSEA/HEADACHE/HALLUCINATIONS, CONTINUES WITH SLIGHT TREMOR.
--- NOTE | 2020-04-04 13:30 | NUR ---
REPORT CALLED TO RN FOR ROOM 304. QUESTIONS ASKED AND ANSWERED. BELONGINGS GATHERED. PATIENT VERBALLY PREPARED TO MOVE TO NEW ROOM.
--- NOTE | 2020-04-04 14:00 | NUR ---
PT TRANSFERRED VIA WHEELCHAIR TO ROOM 304. PT TOLERATED TRANSFER WELL. PT SHORT OF BREATH WHILE MOVING FROM W/C TO BED. SITTING ON EDGE OF BED TO GET ACCLIMATED. FACE TO FACE REPORT TO BOTH METALLURGICAL ANALYST AND RN.
--- NOTE | 2020-04-04 14:05 | NUR ---
PT ARRIVED TO ROOM 304 VIA W/C FROM ICU, ABLE TO STAND AND TRANSFER TO BED WITH ASSIST. DENIES PAIN/DISCOMFORT, NO WANTS OR NEEDS AT THIS TIME. CALL ARAGON IN REACH AND BED IN LOWEST POSITION.
--- NOTE | 2020-04-05 04:05 | NUR ---
SUMMARY PT HAD NO ISSUES. PT PLESANT AND COPPERATIVE. PT AMBULATING W/ FWW TO BATHROOM. PT IS UNSTEADY AND REQUIRES ONE ASSIST. PT HAS BEEN SLEEPING FOR MOST OF SHIFT. PT CURRENTLY SLEEPING AND BREATHING EASY. CALL LIGHT IN REACH AND BED ALARM ON.
[2020-04-05 06:20] LABS: BASOPHILS ABSOLUTE AUTO 0.08 K/mm3 (0.00-0.23); BASOPHILS PERCENT AUTO 1 % (0-2); EOSINOPHILS ABSOLUTE AUTO 0.08 K/mm3 (0.00-0.68); EOSINOPHILS PERCENT AUTO 1 % (0-6); Hematocrit 32.4 % (37.0-53.0); Hemoglobin 9.8 g/dL (13.5-17.5); IMMATURE GRAN PERCENT AUTO 1 % (0-1); LYMPHOCYTES PERCENT AUTO 15 % (21-46); MONOCYTES ABSOLUTE AUTO 2.27 K/mm3 (0.16-1.47); MONOCYTES PERCENT AUTO 29 % (4-13); Mean Corpuscular HGB 27.2 pg (26.0-34.0); Mean Corpuscular HGB Conc 30.2 g/dL (31.5-36.5); Mean Corpuscular Volume 90 fL (80-100); Mean Platelet Volume 9.6 fL (9.1-12.4); NEUTROPHILS ABSOLUTE AUTO 4.24 K/mm3 (1.96-9.15); NEUTROPHILS PERCENT AUTO 53 % (41-73); Platelet Count 220 K/mm3 (150-400); RDW Coefficient Variation 23.1 % (11.7-14.2); RDW Standard Deviation 72.9 fL (35.1-46.3); White Blood Cell Count 7.97 K/mm3 (4.00-11.30)
[2020-04-05 06:44] LABS: Anion Gap 4 mmol/L (6-16); Blood Urea Nitrogen 17 mg/dL (8-24); Bun/Creatinine Ratio 19.3 (12.0-20.0); CO2, Blood 26 mmol/L (21-32); Calcium, Blood 8.8 mg/dL (8.5-10.1); Chloride, Blood 111 mmol/L (98-108); Creatinine, Blood 0.88 mg/dL (0.60-1.20); Glomerular Filtration Rate >60 (60-); Glucose, Blood 130 mg/dL (70-99); Phosphorus, Blood 3.1 mg/dL (2.5-4.9); Potassium, Blood 3.9 mmol/L (3.5-5.5); Sodium, Blood 141 mmol/L (136-145)
--- NOTE | 2020-04-05 14:54 | NUR ---
Met pt. sitting up in his bed and taking his snacks he reports to be doing better encouraged pt. and offered some prayers .
--- NOTE | 2020-04-06 17:21 | NUR ---
SHIFT SUMMARY- PT IS A/O, PLESANT AND COOPERATIVE. HE IS EATING AND DRINKING WELL. HE WORKED WITH PT THIS SHIFT AND TOLERATED WELL. HE SPOKE WITH VERITO NUGENT ON THE PHONE THIS AFTERNOON AND IS AWAITING PLACMENT. HIS CIWA SCORES SHOWED MINIMAL CHANGES AND STABLE WITHDRAW. HIS BED IS IN THE LOW POSITION AND CALL LIGHT WITHIN REACH.
--- NOTE | 2020-04-06 20:12 | NUR ---
late entry for 04/06/2020 at 0700 am. 64 year old Male who appears older than actual age continues cooperative with therapy & has no suicidal ideation or plan. His CIWA scores are less than 8 he has tremors intention. He has pale ecchymotic skin with large purple bruise rt upper back. PT needs standby assist to bathroom multiple times due to weak slow gait & he wants to hang onto furniture such as rolling table which is unsafe. He is on room air does appear to be SOB with exertion. PT had multiple michaud stools this shift continent of bowel & bladder. Wears pullup. Assisted with perianal care. Forgetful at times sets of bed alarm getting up unassisted. DTR in & supportive she works here but lives in [place] where she has assisted with arranging inpt Substance abuse treatment to go there from here. PT was unable to fully complete the intake process, encouraged to finish today. Medicated with immodium for multiple loose michaud stools, not watery. PT says he dislikes neurontin because he feels groggy. encouraged to discuss with .
--- NOTE | 2020-04-07 04:13 | NUR ---
64 year old Male continues to participate with physical therapy to promote safe mobility. He is making progress but continues with weak gait unsteady at times & wants to hold onto furniture or objects that move versus using fww. He had a fall witnessed at 2144. He had no apparent injury has multiple bruises & scabs from previous falls. he has been awaiting placement at in treatment unit for alcoholism treatment. He needs to be safe at ambulation to dc to this facility per DTR report. PT appears uninjured from this fall & has been cooperative with bed alarm SBA for ambulation & calls appropriately for assist to bathroom. PT had requested to stop neurontin & resume home med lunestia, has trazodone 150 mg at [facility] & DR Brooks declined to rx. Called DR Brooks about fall he rx Ambien but PT appears to be getting adequate rest. Neurontin dc. PT said he called DTR to inform of fall but I will verify she has been notified.
--- NOTE | 2020-04-07 06:11 | NUR ---
Fall precautions continue & pt continues to deny pain or injury from fall. Spoke with DTR Aaron who works in ICU about fall & she says he has had multiple falls in past some causing fracture. PT had said he slipped but he now says maybe he almost passed out? Resting systolic BP this AM 105 per PT report. DC planning to inpt tx at [facility] in [place] continue. Contiue to insist PT have SBA for ambulation & use fww.
--- NOTE | 2020-04-07 17:03 | NUR ---
SHIFT SUMMARY- PT IS A/O, PLESANT AND COOPERATIVE. HE IS EATING AND DRINKING WELL. HE IS RECIEVING IMODIUM FOR LOOSE STOOL. D/C JERMAINE COTTRELL PER RECOMENDED US OF SCD FOR SWELLING IN THE LEGS. A WALKER WAS DELIVERED FOR HIM TO TAKE HOME. HE WORKED WITH PT AND TOLERATED WELL. HIS BED IS IN THE LOW POSITION AND CALL LIGHT IS WITHIN REACH.
--- NOTE | 2020-04-08 04:50 | NUR ---
SHIFT SUMMARY ASSUMED CARE OF PT AT 1900. PT IS A/OX4. HEART SOUNDS REGULAR, LUNG SOUNDS CLEAR. PT IS 1P TO BATHROOM WITH WALKER. PT DID NOT USE THE CALL LIGHT APPRPOPIATELY AND WOULD SET THE BED ALARM ON DURING THE NIGHT. PT C/O NAUSEA, MEDICATED PER EMAR. PT WAS NOT ABLE TO SLEEP WELL DURING THE NIGHT. CALL LIGHT IN REACH, BED IN LOWEST POSTION, BED ALARM ON.
--- NOTE | 2020-04-08 18:38 | NUR ---
SHIFT SUMMARY. A&OX4, SBA WITH FWW TO BATHROOM. PT DENIES PAIN, SOB, N/V. PARTICIPATED WITH PHYSICAL THERAPY AND TOLERATED WELL. NO NEW CHANGES OR CONCERNS.
--- NOTE | 2020-04-09 04:29 | NUR ---
SHIFT SUMMARY A/O, ABLE TO MAKE NEEDS KNOWN. COOPERATIVE WITH CARE. CALLS AND ANSWERS QUESTIONS APPROPRIATELY. NO C/O PAIN/DISCOMFORT. APPEARED TO REST MUCH OF THE NIGHT. NO ACUTE CHANGES NOTED. BED REMAINED IN LOWEST POSITION. CALL LIGHT AND BELONGINGS WITHIN REACH. REPORT TO ONCOMING RN.
[2020-04-09] MEDS ORDERED: FURO20 PO (11:41)
[2020-04-09] MEDS ORDERED: POTA10T PO (11:42)
--- NOTE | 2020-04-09 12:13 | NUR ---
DISCHARGE NOTE PT IS A&O. PT INDEPENDENT IN ROOM AND WALKING THE HALLS WITH WALKER. AT START OF SHIFT PT ASKED FOR THE DR TO BE CALLED SO HE COULD BE DISCHARGED. WENT OVER THE DISCHARGE PACKET AND MEDICATION PACKET WITH PT. PT POWER GLIDE TAKEN OUT BY THIS RN. PT TOOK WALKER HOME. PT TAKEN OFF THE FLOOR VIA WHEEL CHAIR BY MARLA CEDENO AND WAS PICKED UP BY A FRIEND.
== END 2020-04-09 11:56 | disposition home or self-care (01) | DRG 897 ==
LOC: ER 12:02 → EOR 12:03 → MEDS 19:04 → EOR 19:04 → ICUE 19:04 → EOR 19:58 → ICUE 20:30 → MEDS 04-04 13:44
PROVIDERS: Emergency Medicine; Family Medicine; Hospitalist; Internal Medicine; Psychiatry & Neurology Psychiatry; ADMIT Internal Medicine
DX: F10.231 Alcohol dependence with withdrawal delirium (principal); R45.851 Suicidal ideations; E87.1 Hypo-osmolality and hyponatremia; Z20.828 Contact with and (suspected) exposure to other viral communicable diseases; F32.9 Major depressive disorder, single episode, unspecified; J44.9 Chronic obstructive pulmonary disease, unspecified; Z86.73 Personal history of transient ischemic attack (TIA), and cerebral infarction without residual deficits; Z96.642 Presence of left artificial hip joint; Z98.84 Bariatric surgery status; H40.9 Unspecified glaucoma; G47.00 Insomnia, unspecified; E87.6 Hypokalemia; Y90.8 Blood alcohol level of 240 mg/100 ml or more
CPT/HCPCS: 0241U; 36415; 80048; 80053; 84100; 85014; 85018; 85025; 85610; 93005; 93010; 96361; 96374; 96375; 96376; 97110; 97116; 97161; 97530; 99285-25; A9270-GY; C1751; G0480; J1650; J2060; J2405; J3411; J3475; J3480; J7030; J7042; J7120

== ENCOUNTER → 2021-04-11 | Outpatient (CLI) | payer BC, MEDICARE ==
[~2021-04-11] MED LIST changes: +CHLO25 PO; +Desyrel150 MG PO; +ESZO3 PO; +FURO20 PO; +MULTI-VITAMIN1 EAC2 PO; +PANT40 PO; +POTA10T PO; +TIMOLOL MALEATE5 ML BOTHEYES; +Xalatan2.5 ML BOTHEYES
== END | disposition home or self-care (01) ==
LOC: LAB SHORT 11:23
DX: L57.0 Actinic keratosis (principal)
CPT/HCPCS: 88305

== ENCOUNTER 2021-04-25 08:32 | Day surgery (SDC) | payer MEDICARE ==
[~2021-04-25] VITALS: Ht 172.7 cm; Wt 102.6 kg
== END 2021-04-25 10:58 | disposition home or self-care (01) ==
LOC: ORSCSDS 08:32
PROVIDERS: Internal Medicine Gastroenterology
PROC: 0DBP8ZX Excision of Rectum, Via Natural or Artificial Opening Endoscopic, Diagnostic (ICD-10-PCS; principal; 2021-04-25 10:00)
DX: Z12.11 Encounter for screening for malignant neoplasm of colon (principal); Z86.010 Personal history of colon polyps; K31.7 Polyp of stomach and duodenum; K57.30 Diverticulosis of large intestine without perforation or abscess without bleeding; K64.8 Other hemorrhoids; Z83.71 Family history of colonic polyps; Z79.899 Other long term (current) drug therapy
CPT/HCPCS: J2704; J7120

== ENCOUNTER 2024-05-31 03:53 | Day surgery (SDC) | payer MEDICARE ==
[~2024-05-31 03:53] MED LIST changes: +ALBU90OI INH; +OMEP20ER PO; +Sod Ferric Gluc Complx/Sucrose 125 MG in NS 100 ML IV SCH; +TIMDOROPSO BOTHEYES; +TRAZ150T57 PO
[2024-05-31 07:41] VITALS: BP 156/85
== END 2024-05-31 08:46 | disposition home or self-care (01) ==
LOC: ATC 03:53
DX: D50.9 Iron deficiency anemia, unspecified (principal); J45.909 Unspecified asthma, uncomplicated; Z79.899 Other long term (current) drug therapy
CPT/HCPCS: 96365; J2916

== ENCOUNTER 2024-06-01 00:46 | Day surgery (SDC) | payer MEDICARE ==
[~2024-06-01 00:46] MED LIST changes: -Sod Ferric Gluc Complx/Sucrose 125 MG in NS 100 ML IV SCH
[2024-06-01] MEDS ORDERED: Sod Ferric Gluc Complx/Sucrose 125 MG in NS 100 ML IV SCH (06:00)
[2024-06-01 09:51] VITALS: BP 162/79
[2024-06-01 10:34] VITALS: BP 119/71
== END 2024-06-01 10:53 | disposition home or self-care (01) ==
LOC: ATC 00:46
DX: D50.9 Iron deficiency anemia, unspecified (principal); J45.909 Unspecified asthma, uncomplicated; Z79.899 Other long term (current) drug therapy
CPT/HCPCS: 96365; J2916

== ENCOUNTER 2024-06-02 00:36 | Day surgery (SDC) | payer MEDICARE ==
[2024-06-02] MEDS ORDERED: Sod Ferric Gluc Complx/Sucrose 125 MG in NS 100 ML IV SCH (01:00)
[2024-06-02 08:02] VITALS: BP 134/71
== END 2024-06-02 09:00 | disposition home or self-care (01) ==
LOC: ATC 00:36
DX: D50.9 Iron deficiency anemia, unspecified (principal); J45.909 Unspecified asthma, uncomplicated; Z79.899 Other long term (current) drug therapy
CPT/HCPCS: 96365; J2916

== ENCOUNTER 2024-06-03 00:02 | Day surgery (SDC) | payer MEDICARE ==
[2024-06-03] MEDS ORDERED: Sod Ferric Gluc Complx/Sucrose 125 MG in NS 100 ML IV SCH (01:00)
[2024-06-03 15:52] VITALS: BP 165/87
== END 2024-06-03 16:58 | disposition home or self-care (01) ==
LOC: ATC 00:02
DX: D50.9 Iron deficiency anemia, unspecified (principal); E66.01 Morbid (severe) obesity due to excess calories; Z79.899 Other long term (current) drug therapy
CPT/HCPCS: 96365; J2916

== ENCOUNTER 2024-07-22 02:38 | Day surgery (SDC) | payer MEDICARE ==
[2024-07-22] MEDS ORDERED: Sod Ferric Gluc Complx/Sucrose 125 MG in NS 100 ML IV SCH (06:00)
[2024-07-22 16:24] VITALS: BP 142/82
== END 2024-07-22 17:22 | disposition home or self-care (01) ==
LOC: ATC 02:38
DX: D50.9 Iron deficiency anemia, unspecified (principal); J45.909 Unspecified asthma, uncomplicated; E66.01 Morbid (severe) obesity due to excess calories; Z79.899 Other long term (current) drug therapy; Z98.84 Bariatric surgery status
CPT/HCPCS: 96365; J2916

== ENCOUNTER 2024-07-23 04:04 | Day surgery (SDC) | payer MEDICARE ==
[~2024-07-23 04:04] MED LIST changes: +Sod Ferric Gluc Complx/Sucrose 125 MG in NS 100 ML IV SCH
[2024-07-23 16:40] VITALS: BP 150/84
== END 2024-07-23 17:46 | disposition home or self-care (01) ==
LOC: ATC 04:04
DX: D50.9 Iron deficiency anemia, unspecified (principal); Z98.84 Bariatric surgery status
CPT/HCPCS: 96365; J2916

== ENCOUNTER 2024-07-24 04:03 | Day surgery (SDC) | payer MEDICARE ==
[2024-07-24 08:02] VITALS: BP 125/70
== END 2024-07-24 09:23 | disposition home or self-care (01) ==
LOC: ATC 04:03
DX: D50.9 Iron deficiency anemia, unspecified (principal); E66.01 Morbid (severe) obesity due to excess calories; Z98.84 Bariatric surgery status
CPT/HCPCS: 96365; J2916

== ENCOUNTER 2024-07-25 01:07 | Day surgery (SDC) | payer MEDICARE ==
[2024-07-25 08:15] VITALS: BP 130/82
== END 2024-07-25 09:20 | disposition home or self-care (01) ==
LOC: ATC 01:07
DX: D50.9 Iron deficiency anemia, unspecified (principal); J45.909 Unspecified asthma, uncomplicated; E66.01 Morbid (severe) obesity due to excess calories; Z79.899 Other long term (current) drug therapy; Z98.84 Bariatric surgery status
CPT/HCPCS: 96365; J2916

== ENCOUNTER 2024-07-26 01:26 | Day surgery (SDC) | payer MEDICARE ==
[~2024-07-26 01:26] MED LIST changes: -Sod Ferric Gluc Complx/Sucrose 125 MG in NS 100 ML IV SCH
[2024-07-26] MEDS ORDERED: Sod Ferric Gluc Complx/Sucrose 125 MG in NS 100 ML IV SCH (06:00)
[2024-07-26 07:50] VITALS: BP 154/79
--- NOTE | 2024-07-26 08:00 | NUR ---
PT GIVEN BLACK COFFEE PER HIS REQUEST. NO OTHER REQUESTS AT THIS TIME. CALL LIGHT IN REACH. PT RECLINED WATCHING TV.
== END 2024-07-26 08:48 | disposition home or self-care (01) ==
LOC: ATC 01:26
DX: D50.9 Iron deficiency anemia, unspecified (principal); J45.909 Unspecified asthma, uncomplicated; E66.01 Morbid (severe) obesity due to excess calories; Z79.899 Other long term (current) drug therapy
CPT/HCPCS: 96365; J2916

== ENCOUNTER 2024-07-28 10:41 | Day surgery (SDC) | payer MEDICARE ==
[~2024-07-28] VITALS: Ht 172.7 cm; Wt 108.7 kg
[~2024-07-28 10:41] MED LIST changes: +Lactated Ringer's 1,000 ML IV ONE; +propofoL 50 ML IV ONE
[2024-07-28] MEDS ORDERED: Lactated Ringer's 1,000 ML IV ONE (11:46)
[2024-07-28 13:05] VITALS: BP 125/74
== END 2024-07-28 13:00 | disposition home or self-care (01) ==
LOC: ORSCSDS 10:41
PROVIDERS: Internal Medicine Gastroenterology
PROC: 0DBH8ZX Excision of Cecum, Via Natural or Artificial Opening Endoscopic, Diagnostic (ICD-10-PCS; principal; 2024-07-28 12:15)
DX: Z12.11 Encounter for screening for malignant neoplasm of colon (principal); Z86.0101 Personal history of adenomatous and serrated colon polyps; Z83.719 Family history of colon polyps, unspecified; D12.0 Benign neoplasm of cecum; K57.30 Diverticulosis of large intestine without perforation or abscess without bleeding; Z79.899 Other long term (current) drug therapy
CPT/HCPCS: 88305; J2704; J7120